=== PATIENT | female | born 1990 | race Caucasian/White ===

== ENCOUNTER 2019-03-12 20:50 | Emergency (ER) | payer MEDICAID ==
[~2019-03-12] VITALS: Ht 154.9 cm; Wt 83.5 kg
[2019-03-12 20:53] VITALS: Ht 154.9 cm; Wt 83.5 kg
[2019-03-12 22:44] VITALS: BP 113/65
== END 2019-03-12 22:44 | disposition home or self-care (01) ==
LOC: ED 20:50
DX: O23.43 Unspecified infection of urinary tract in pregnancy, third trimester (principal); Z3A.30 30 weeks gestation of pregnancy; Z88.8 Allergy status to other drugs, medicaments and biological substances
CPT/HCPCS: J2550; Q0092

== ENCOUNTER 2020-08-28 16:24 | Emergency (ER) | payer MEDICAID, SELFPAY ==
[~2020-08-28] VITALS: Ht 154.9 cm; Wt 90.7 kg
[2020-08-28 16:48] VITALS: Ht 154.9 cm; Wt 90.7 kg
[2020-08-28 18:33] VITALS: BP 115/74
== END 2020-08-28 18:35 | disposition home or self-care (01) ==
LOC: ED 16:24
DX: O98.513 Other viral diseases complicating pregnancy, third trimester (principal); U07.1 COVID-19; Z3A.37 37 weeks gestation of pregnancy
CPT/HCPCS: U0003